=== PATIENT | female | born 2005 | race Caucasian/White ===

== ENCOUNTER 2023-07-20 16:26 | Emergency (ER) | payer BC, SELFPAY ==
--- NOTE | 2023-07-20 16:28 | ED.EAR ---
HPI - Ear Problem General Chief complaint: Ear Stated complaint: Ear Pain (right ear) Time Seen by Provider: 07/20/23 16:28 Source: patient Mode of arrival: ambulatory Limitations: no limitations History of Present Illness HPI Narrative: Patient is a 18-year-old female that presents with right ear pain for 2 days. Reports decreased hearing as well. Denies any congestion, sore throat, cough, fever, chills, nausea, vomiting, diarrhea. Denies history of ear infections. Does wear ear plugs and ear buds frequently. MD Complaint: ear pain Related Data Allergies Allergy/AdvReac Type Severity Reaction Status Date / Time No Known Allergies Allergy Mild Verified 07/20/23 16:30 Review of Systems Review of Systems: All systems reviewed & are unremarkable except as noted in HPI and below Constitutional: Constitutional: Denies body ache(s), Denies chills, Denies fever(s), Denies headache(s) and Denies malaise Eyes: Eyes: Denies blurry vision, Denies eye discharge and Denies irritation ENT: Reports otalgia, Denies headache(s), Denies nasal congestion, Denies nasal discharge and Denies sore throat Cardiovascular: Cardiovascular: Denies chest pain, Denies edema, Denies palpitations and Denies dyspnea on exertion Respiratory: Respiratory: Denies cough and Denies dyspnea on exertion Gastrointestinal: Gastrointestinal: Denies abdominal pain, Denies diarrhea, Denies nausea and Denies vomiting Musculoskeletal: Musculoskeletal: Denies back pain, Denies arthralgias and Denies muscle weakness Integumentary/Breasts: Skin/Breast: Denies pruritus and Denies rash Neurologic: Denies headache(s) Psychiatric: Psychiatric: Reports no additional psychiatric complaints Endocrine: Endocrine: Denies palpitations PMFSH Past Medical History Medical History HIEU (generalized anxiety disorder) Insomnia Migraine Panic attacks Family History Family History Father Diabetes mellitus Hypertension Mother Heart disease Social History Social History Smoking status: Never smoker Second hand tobacco smoke exposure: No Alcohol intake: never Substance use: never Living arrangements: with family Occupation/Education: occupation Gender identity (if verbalized by the patient): Other Spiritual care concerns: No Comments At time of signature, agree with nursing past medical, surgical, social and family history. There is no relevant family history pertinent to the presenting complaint? Exam Const: General: cooperative, healthy appearing, no acute distress and well nourished Nutritional Appearance: well nourished Orientation/consciousness: patient oriented x3 Limitations: no limitations HENMT: Head: normal to inspection, normocephalic and atraumatic Ears: hearing grossly normal bilaterally, EAC's normal, no periauricular adenopathy and TM abnormal obstructed by cerumen bilateral Face/Nose/Sinus: Normal external nose present, Normal nares present, Normal nasal mucous membranes and turbinates present, No nasal discharge present, normal facial exam and sinuses nontender Face and sinus: normal facial exam and sinuses nontender Mouth: Yes Normal oral and palatal mucosa present, Yes lip normal, Yes tongue normal and Yes moist mucous membranes Throat: posterior oropharynx normal, tonsils normal and uvula midline Eyes: General: appearance normal, both eyes and all related structures Alignment and Position: alignment normal and position normal Eyelids: eyelids normal Pupils: Equal, round and reactive pupils present EOM: EOMs intact bilaterally Neck: Neck: normal visual inspection, full ROM, no lymphadenopathy and supple Chest: Chest palpation & inspection: normal inspection of the chest Resp: Effort & Inspection: normal respiratory effort and able to speak in complete sentenc
[2023-07-20 16:41] VITALS: BP 112/73; PULSE 76; RESP 16; TEMP 36.9; O2SAT 100
== END 2023-07-20 16:55 | disposition home or self-care (01) ==
PROVIDERS: Emergency Provider Nurse Practitioner Family; PCP Family Medicine
DX: H61.23 Impacted cerumen, bilateral (principal); H60.501 Unspecified acute noninfective otitis externa, right ear; H66.001 Acute suppurative otitis media without spontaneous rupture of ear drum, right ear
CPT/HCPCS: 69209; 99213; A9270; G0463

== ENCOUNTER 2024-01-04 14:40 | Emergency (ER) | payer BC, SELFPAY ==
--- NOTE | 2024-01-04 14:44 | ED_ITS ---
HPI - URI/Sore Throat General Chief Complaint: Upper Respiratory Infection Stated Complaint: COUGH Time Seen by Provider: 01/04/24 14:44 Source: patient Mode of arrival: ambulatory Limitations: no limitations History of Present Illness HPI Narrative: Cristina is a 18-year-old female patient presenting to the clinic today with complaints of nasal congestion and cough x1 week. She reports cough is productive at times with clear phlegm. She denies any shortness of breath, chest pain, or fever. MD elicited complaint: cough and nasal congestion Related Data Allergies Allergy/AdvReac Type Severity Reaction Status Date / Time No Known Allergies Allergy Mild Verified 12/06/23 10:26 Review of Systems Review of Systems: Pertinent positives per HPI. Patient denies any fever, chills, rash, headache, visual changes, dizziness,shortness of breath, chest pain, palpitations, nausea, vomiting, diarrhea, constipation, abdominal pain, or any urinary issues. PMFSH Past Medical History Medical History HIEU (generalized anxiety disorder) Insomnia Migraine Panic attacks Family History Family History Father Diabetes mellitus Hypertension Mother Heart disease Social History Social History Smoking status: Never smoker Second hand tobacco smoke exposure: No Alcohol intake: never Substance use: never Living arrangements: with family Occupation/Education: occupation Gender identity (if verbalized by the patient): Other Spiritual care concerns: No Comments At the time of my signature, I reviewed and agree with the nursing past medical, surgical, social, and family history. There is no relevant family history pertinent to the patient complaint. Exam Narrative: General: Well-developed, well nourished, in no apparent distress Head: Normocephalic, atraumatic Eyes: Pupils equally round and reactive to light bilaterally, EOM intact, sclera and conjunctive clear, no discharge, lids normal Ears: TMs intact and clear, ear canals clear, no drainage, grossly hearing norm al. Nose: Nares patent, clear nasal discharge, no inflammation, no sinus tenderness. Mouth: Oral pharynx without lesions or masses, good dentition, MMM. Neck: Supple, trachea midline, no enlargement of anterior or posterior cervical nodes, no thyroid masses or goiter palpable. Cardio: Regular rate and rhythm, s1 and s2 normal, no murmur appreciated. Resp: Clear to auscultation bilaterally, no rhonchi, rales, wheezing or rubs Course Course Emergency Course: Portions of this record may have been created with voice recognition software. Level of Care: Express Care Visit Vital Signs Vital signs: Vital signs reviewed MDM - URI/Sore Throat MDM Narrative Medical decision making narrative: At the time of visit patient is resting comfortably on the exam table. Patient appears to be nontoxic. Plan: Lung sounds are clear patient denies any shortness of breath. Cough is productive at times with clear phlegm. Reporting nasal congestion. I suspect patient has URI. Prescription for prednisone was sent to the pharmacy. Supportive measures were discussed with the patient and they voiced understanding discharge instructions and agrees to treatment plan. Return precautions reviewed Differential Diagnosis Differential diagnosis: Likely upper respiratory infection, otitis media, sinusitis, viral infection, bronchitis, influenza, pharyngitis and other (COVID) Discharge Plan Discharge Clinical Impression: Upper respiratory infection Patient Disposition: Home, Self-Care Condition: Stable Instructions: Antibiotic Form, Cold Symptoms (ED) Additional Instructions: Take prescription medications only as prescribed-prednisone Increase fluids and stay well hydrated Tylenol/motrin for pain/fever Flonase and OTC antihistamines as directed Vicks vapor rub to open sinuses Sinus rinses for congestion Cepacol spray, cough drops, throat lozenges, warm tea with honey/lemon, gargle salt water to soothe throat BRAT diet for diarrhea Clear liquids x 24 hours then advance as tolerated for nausea/vomiting Go to the ED if you develop a worsening in your condition- high fever not controlled by Tylenol or Motrin, dehydration, weakness, lethargy, shortness of breath, or chest pain. Follow up with your PCP in 3-5 days if symptoms persist. Prescriptions: New prednisone 20 mg tablet 40 mg PO DAILY 5 Days Qty: 10 0RF No Action duloxetine 60 mg capsule,delayed release(DR/EC) 60 mg PO DAILY Qty: 90 3RF Follow-up/Referrals: Chauncey Dominique MD [Primary Care Provider] - Time of Disposition: 14:55 Quality NIHSS Nursing Documentation ED NIHSS nursing documentation: reviewed/agree
[2024-01-04 14:47] VITALS: BP 115/63; PULSE 68; RESP 16; TEMP 36.6; O2SAT 100
[2024-01-04 14:50] VITALS: BP 115/63; PULSE 68; RESP 16; TEMP 36.6; O2SAT 100
== END 2024-01-04 15:01 | disposition home or self-care (01) ==
PROVIDERS: Emergency Provider Nurse Practitioner Family; PCP Family Medicine
DX: J06.9 Acute upper respiratory infection, unspecified (principal)
CPT/HCPCS: 99213; G0463

== ENCOUNTER 2025-01-11 12:58 | Emergency (ER) | payer BC, SELFPAY ==
--- OUTSIDE RECORDS SUMMARY | 2024-07-22 07:45 | XMS_ITS ---
Author Organization [facility] [employer] [facility] Address [facility] [address] [facility] [address] [place] [address] Care Team Providers Care Signal Tester Name Role Phone Catina CARCAMO, Chauncey Primary Care Provider UnavailTony Case Unavailable [phone] REASON FOR VISIT 1 month f/u Social History Sex Assigned At : Social History Observation Description Sex Assigned At Female Encounters Encounter Location Date Provider Diagnosis [facility] [employer] [address] [address] 07/22/2024 Tony Childress Plan Of Treatment No Information Progress Notes * Cristina ESTEBAN NDOB: [birth year] (19 yo M)Acc No.[id number]:07/22/2024 Patient: Cristina Calzada Provider: JASS CRUZ :2005 A ge:19 Y S ex:Male(T) Date:07/22/2024 Phone: Address:[address] [place], [place] [id number] Pcp:Chauncey Dominique MD Subjective: * Chief Complaints: * 1 month f/u * Electronic signature of JASS Moeller on 01/11/2025 at 01:01 PM RETAIL PLANNER Sign off status: Pending * Provider: JASS CRUZ Date: 0 07/22/2024 Generated for Silvana pierre/Hans/eTransmitting on: 1 03/14/2024 01:01 PM RETAIL PLANNER
--- OUTSIDE RECORDS SUMMARY | 2024-11-13 07:45 | XMS_ITS ---
Author Organization [facility] [employer] [facility] Address [facility] [address] [address] Care Team Providers Care Feed Research Technician Name Role Phone Chauncey Dominique MD Primary Care Provider Tony Chaney Unavailable [phone] REASON FOR VISIT Follow Up Social History Sex Assigned At : Social History Observation Description Sex Assigned At Female Encounters Encounter Location Date Provider Diagnosis [facility] [employer] [facility] [address] [address] 11/13/2024 Tony Childress Plan Of Treatment No Information Progress Notes * Cristina ESTEBAN NDOB: [birth year] (19 yo M)Acc No.[id number]:11/13/2024 Patient: Cristina Calzada Provider: JASS CRUZ :2005 A ge:19 Y S ex:Male(T) Date:11/13/2024 Phone: Address:[address] [place], [place] [id number] Pcp:Chauncey Dominique MD Subjective: * Chief Complaints: * F ollow Up Billing Information: * Procedure Codes: * Electronic signature of JASS Moeller on 01/11/2025 at 01:01 PM BRAKE SPECIALIST Sign off status: Pending * Provider: JASS CRUZ Date: Generated for Silvana pierre/Hans/eTransmitting on: 03/14/2024 01:01 PM BRAKE SPECIALIST
--- OUTSIDE RECORDS SUMMARY | 2025-01-11 13:01 | XMS_ITS | Clinical Summary ---
Author Organization [facility] Address [address] [place] [address] Care Team Providers Care Usability Strategist Name Role Phone Chauncey Dominique MD Primary Care Provider Allergies No known active allergies Medications rizatriptan (MAXALT) 10 mg tabletIndicatio ns:Migraine Take 1 tablet (10 mg total) by mouth once as needed for migraine May repeat in 2 hours if unresolved. Do not exceed 30 mg in 24 hours. 9 tablet 3 05/03/2021 Active hydrOXYzine (ATARAX) 25 mg tabletIndicatio ns:anxiety,Inso mnia Take 1 tablet (25 mg total) by mouth 2 (two) times a day as needed for anxiety 30 tablet 2 02/11/[address] (CYMBALTA) 60 mg capsule TAKE 1 CAPSULE(60 MG) BY MOUTH DAILY 30 capsule 2 02/11/2024 Active Active Problems Problem Noted Date Diagnosed Date Anxiety 04/07/2021 Assessment & Plan (04/07/2021 6:23 PM LOUVER DOOR ASSEMBLER): - Consulted Psychiatry and Psychology - Lexapro 10mg every day per Psych rec; patient and family consented to this plan - Provided outpatient resources for longitudinal care Fever of unknown origin 04/04/2021 Assessment & Plan (04/07/2021 6:20 PM LOUVER DOOR ASSEMBLER): This is a 15yo previously healthy female with no known exposures presenting with 6 weeks of near daily fevers and headache with unremarkable work-up thus far, admitted for further work-up including brain imaging. Fevers have occurred almost every day since 02/22, average 100-101F, a/w frontal BAPTISTE that occurs both when febrile and afebrile. Also endorses nausea, decreased appetite, fatigue, decreased activity tolerance, mental slowing, and unintentional 15lb weight loss since November 2020. She is Covid vaccinated and has had multiple negative Covid tests, labs drawn with negative inflammatory markers, and no positive infectious etiology (negative histo eran, Tspot, HIV, CMV, EBV, Bartonella, Toxo, neg blood cx). Her exam is negative for lymphadenopathy, abdominal pain, abdominal masses, joint erythema/ edema, URI sx. Differential diagnosis for ongoing fever and headache is broad but now less likely due to autoimmune disorders given negative inflammatory markers (ESR, CRP) and ROS is negative for arthritis, arthralgia, bloody stools, vision changes, mucous membrane changes. Workup with normal brain and total spine MRI, CT c/abd/pel, and echo. Also less likely due to an acute infection given the broad infectious workup has been unremarkable. Patient has also been afebrile throughout her hospitalization. Plan: #FUO - tylenol/ ibuprofen prn for fever - f/u blood cx, UA and urine culture, tularemia, qfever titers, copper, zinc - updated the PCP with the extent of workup and transition of care to [facility] and clinical trajectory Assessment & Plan (04/06/2021 4:38 PM LOUVER DOOR ASSEMBLER): This is a 15yo previously healthy female with no known exposures presenting with 6 weeks of near daily fevers and headache with unremarkable work-up thus far, admitted for further work-up including brain imaging. Fevers have occurred almost every day since 02/22, average 100-101F, a/w frontal BAPTISTE that occurs both when febrile and afebrile. Also endorses nausea, decreased appetite, fatigue, decreased activity tolerance, mental slowing, and unintentional 15lb weight loss since November 2020. She is Covid vaccinated and has had multiple negative Covid tests, labs drawn with negative inflammatory markers, and no positive infectious etiology (negative histo eran, Tspot, HIV, CMV, EBV, Bartonella, Toxo, neg blood cx). Her exam is negative for lymphadenopathy, abdominal pain, abdominal masses, joint erythema/ edema, URI sx. Differential diagnosis for ongoing fever and headache is broad and includes autoimmune disorders (including ZOE, familial Mediterranean fever, IBD, lupus), infectious disease (including bartonellosis, toxoplasmosis, histoplasmosis, blastomycosis, brucellosis, HIV, TB), and malignancy. Bartonellosis would be plausible with her home exposure to cats though has previously tested negative - this could be a false negative and we will follow up on repeat antibody testing. Labs for toxo, histo, HIV, TB were negative as well, and were lower on the differential given her lack of exposures or other systemic sx. Autoimmune/ rheumatologic disorders remain on the differential though her inflammatory markers (ESR, CRP) have consistently been negative and ROS is negative for arthritis, arthralgia, bloody stools, vision changes, mucous membrane changes. Workup with normal brain MRI, CT c/abd/pel, and echo. Labs with normal thyroid function and IgA. Plan: #FUO - tylenol/ ibuprofen prn for fever - Melatonin prn qhs for sleep - POAL - f/u blood cx, UA and urine culture, bartonella, brucella, tularemia, qfever, chlamydia titers - MRI total spine per Neuro recommendation - Labs with VITOR, MYRTLE, dsDNA, C3, C4, vit B12, copper, zinc Assessment & Plan (04/06/2021 4:12 PM LOUVER DOOR ASSEMBLER): This is a 15yo previously healthy female with no known exposures presenting with 6 weeks of near daily fevers and headache with unremarkable work-up thus far, admitted for further work-up including brain imaging. Fevers have occurred almost every day since 02/22, average 100-101F, a/w frontal BAPTISTE that occurs both when febrile and afebrile. Also endorses nausea, decreased appetite, fatigue, decreased activity tolerance, mental slowing, and unintentional 15lb weight loss since November 2020. She is Covid vaccinated and has had multiple negative Covid tests, labs drawn with negative inflammatory markers, and no positive infectious etiology (negative histo eran, Tspot, HIV, CMV, EBV, Bartonella, Toxo, neg blood cx). On exam she is thin but well-appearing and alert, with findings significant for anisocoria (L pupil >R pupil), two papules on distal knuckle of 2nd and 3rd fingers of R hand, otherwise negative for lymphadenopathy, abdominal pain, abdominal masses, joint erythema/ edema, URI sx. Differential diagnosis for ongoing fever and headache is broad and includes autoimmune disorders (including ZOE, familial Mediterranean fever, IBD, lupus), infectious disease (including bartonellosis, toxoplasmosis, histoplasmosis, blastomycosis, brucellosis, HIV, TB), and malignancy. Bartonellosis would be plausible with her home exposure to cats though has previously tested negative - this could be a false negative and we will repeat antibody testing. Labs for toxo, histo, HIV, TB were negative as well, and were lower on the differential given her lack of exposures or other systemic sx. Autoimmune/ rheumatologic disorders remain on the differential though her inflammatory markers (ESR, CRP) have consistently been negative and ROS is negative for arthritis, arthralgia, bloody stools, vision changes, mucous membrane changes. Given ongoing headache and nausea and unremarkable work-up thus far, we will obtain brain imaging in the AM to rule out intracranial process in addition to repeating prior labs: CBC, CMP, ESR, CRP, UA, blood culture, bartonella antibodies. Plan: #FUO - tylenol/ ibuprofen prn for fever - Melatonin prn qhs for sleep - POAL - f/u blood cx, UA, hcG, Bartonella titers - MRI brain w wo contrast in AM Assessment & Plan (04/05/2021 3:00 AM LOUVER DOOR ASSEMBLER): This is a 15yo previously healthy female with no known exposures presenting with 6 weeks of near daily fevers and headache with unremarkable work-up thus far, admitted for further work-up including brain imaging. Fevers have occurred almost every day since 02/22, average 100-101F, a/w frontal BAPTISTE that occurs both when febrile and afebrile. Also endorses nausea, decreased appetite, fatigue, decreased activity tolerance, mental slowing, and unintentional 15lb weight loss since November 2020. She is Covid vaccinated and has had multiple negative Covid tests, labs drawn with negative inflammatory markers, and no positive infectious etiology (negative histo eran, Tspot, HIV, CMV, EBV, Bartonella, Toxo, neg blood cx). On exam she is thin but well-appearing and alert, with findings significant for anisocoria (L pupil >R pupil), two papules on distal knuckle of 2nd and 3rd fingers of R hand, otherwise negative for lymphadenopathy, abdominal pain, abdominal masses, joint erythema/ edema, URI sx. Differential diagnosis for ongoing fever and headache is broad and includes autoimmune disorders (including ZOE, familial Mediterranean fever, IBD, lupus), infectious disease (including bartonellosis, toxoplasmosis, histoplasmosis, blastomycosis, brucellosis, HIV, TB), and malignancy. Bartonellosis would be plausible with her home exposure to cats though has previously tested negative - this could be a false negative and we will repeat antibody testing. Labs for toxo, histo, HIV, TB were negative as well, and were lower on the differential given her lack of exposures or other systemic sx. Autoimmune/ rheumatologic disorders remain on the differential though her inflammatory markers (ESR, CRP) have consistently been negative and ROS is negative for arthritis, arthralgia, bloody stools, vision changes, mucous membrane changes. Given ongoing headache and nausea and unremarkable work-up thus far, we will obtain brain imaging in the AM to rule out intracranial process in addition to repeating prior labs: CBC, CMP, ESR, CRP, UA, blood culture, bartonella antibodies. Plan: #FUO - tylenol/ ibuprofen prn for fever - Melatonin prn qhs for sleep - POAL - f/u blood cx, UA, hcG, Bartonella titers - MRI brain w wo contrast in AM Intermittent exotropia 10/04/2017 Assessment & Plan (10/04/2017 2:52 PM CDT): Fairly well controlled at present Recheck 3 months Consider surgery if worsens Migraine 10/04/2017 Assessment & Plan (04/07/2021 6:21 PM LOUVER DOOR ASSEMBLER): - tylenol PRN, if headache persists, trial Migraines cocktail Assessment & Plan (10/04/2017 2:53 PM CDT): Frequent headaches, likely migraine No ocular problems contributing to these Recommend neurology evaluation 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 018 Assessment & Plan (10/04/2017 2:55 PM CDT): Borderline intraocular pressure (IOP) Tilted discs both eyes (OU) Monitor Myopia of both eyes 10/04/2017 Assessment & Plan (10/04/2017 2:56 PM CDT): No change Rx Surgical History Surgery Date Site/Laterality Comments LYMPH NODE BIOPSY Medical History Medical History Date Comments Patent foramen ovale Family History Medical History Relation Name Comments Diabetes type II Father Migraines Mother Relation Name Status Comments Father Mother Social History Tobacco Use Types Packs/Day Years Used Date Smoking Tobacco: Never Assessed Comments Unknown Sex and Gender Information Value Date Recorded Sex Assigned at Not on file Legal Sex Female 5:11 AM LOUVER DOOR ASSEMBLER Gender Identity Not on file Sexual Orientation Not on file Last Filed Vital Signs Vital Sign Reading Time Taken Comments Blood Pressure 126/83 06/19/2023 10:36 AM CDT Pulse 82 06/19/2023 10:36 AM CDT Temperature 36.2 C (97.1 F) 06/19/2023 10:36 AM CDT Respiratory Rate 15 11/22/2021 9:31 AM CDT Oxygen Saturation 99% 10/24/2022 10:08 AM CDT Inhaled Oxygen Concentration - - Weight 41.7 kg (92 lb) 06/19/2023 10:36 AM CDT Height 157 cm (5' 1.81) 06/19/2023 10:36 AM CDT Body Mass Index 16.93 06/19/2023 10:36 AM CDT Plan of Treatment Health Maintenance Due Date Last Done Comments Cervical Cancer Screening 2003 Depression Screening 2003 Hepatitis C Screening 2003 HPV Vaccines (3 - 3-dose series) 03/31/2021 12/01/19 21, 09/28/2020 Regular Well Visit/Exam 18-64 05/19/2021 Covid-19 Vaccine (2024-2 6 season) 2024 01/26/2021, 05/27/2020, 05/04/2020 Influenza Vaccine (#1) 2024 01/26/2021, 2019 DTaP/Tdap/Td Vaccine (6 - Td or Tdap) 11/24/2024 11/24/2014, 09/23/2006, 11/21/2004, Additional history exists Hepatitis B Screening Completed 08/15/2004 , 2003, 2003 Pneumococcal vaccine <65 Completed 005, 2003, 2003 Varicella Vaccines Completed 09/24/2007, 08/15/2004 Meningococcal Vaccine Completed 09/28/2020, 015 Meningococcal B Vaccine Completed 11/30/2020, 09/28 Insurance [email or web address] ACCESS CHOICE [email or web address] ACCESS CHO[employer] Advance Directives For more information, please contact: [phone] * Full Code (Latest Code Status on File) Date Activated Date Inactivated Comments 04/04/2021 11:21 PM 04/08/2021 6:16 PM Care Teams Usability Strategist Relationship Specialty Start Date End Date Chauncey Dominique MD [address] [facility] [address] [place] [address] PCP - General Family Medicine 11/22/21
--- OUTSIDE RECORDS SUMMARY | 2025-01-11 13:02 | XMS_ITS | Patient Health Record ---
Author Organization [facility] [employer] Address [address] [facility] [address] [place] [address] Care Team Providers Care Mexican Food Machine Tender Name Role Phone Chauncey Dominique MD Primary Care Provider UnavailTony Case Unavailable [phone] Allergies No Known Allergies Reason For Referral No Information Medications Medication SIG (Take, Route, Frequency, Duration) Notes Start Date End Date Status traZODone HCl 50 MG Tablet 0.5 to 1 tablet at bedtime Orally Once a day; Duration: 30 days As needed 08/20/2024 Active Sertraline HCl 100 MG Tablet 1.5 tablet Orally Once a day; Duration: 30 days Active hydrOXYzine HCl 25 MG Tablet 1 tablet as needed Oral; Duration: 15 days As needed PRN Active Sertraline HCl 100 MG Tablet TAKE 1 AND 1/2 TABLETS BY MOUTH DAILY; Duration: 30 Active QUEtiapine Fumarate ER 50 MG Tablet Extended Release 24 Hour 1 tablet in the evening Orally once a day; Duration: 30 days Active Sertraline HCl 25 MG Tablet TAKE 1 TABLET BY MOUTH DAILY FOR 7 DAYS THEN 2 TABLETS BY MOUTH DAILY FOR 7 DAYS Oral; Duration: 14 Days Not-Taking Sertraline HCl 25 MG Tablet Oral; Duration: 14 Days Not- Taking DULoxetine HCl 30 MG Capsule Delayed Release Particles Oral; Duration: 14 Days Not- Taking DULoxetine HCl 30 MG Capsule Delayed Release Particles TAKE 1 CAPSULE BY MOUTH DAILY FOR 14 DAYS Oral; Duration: 14 Days Not-Taking Social History Tobacco Use: Social History Observation Description Date Details (start date - stop date) Never Smoker NA - NA Sex Assigned At : Social History Observation Description Sex Assigned At Female Social History Miscellaneous: Social Info Question Answer Notes Safety issues: Are there any firearms in the house? No Social History Social Info Question Answer Notes Household: Marital Status: Single Number of Adults in household: 4 Number of Children in Household: 0 Level of Education: Not Finished College Drug/Alcohol: Social Info Question Answer Notes Drugs Have you used drugs other than those for medical reasons in the past 12 months? No AUDIT-C (Standard) Did you have a drink containing alcohol in the past year? 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 Adm its Do you drink alcohol? No Problems Problem Type SNOMED Code ICD Code Onset Dates Problem Status W/U Status Risk Notes Problem Generalized anxiety disorder (78971595) Anxiety, generalized (F41.1) Active confirmed Problem Bipolar disorder (01299877) Bipolar disorder with depression (F31.9) Active confirmed Problem Insomnia (939052206) Insomnia (G47.00) Active confirmed Vital Signs Heart Rate 80 /min 08/20/2024 Height-cm 154.94 cm 08/20/2024 Blood pressure diastolic 72 mm Hg 08/20/2024 Weight-kg 43.09 kg 08/20/2024 Height 61 in 08/20/2024 Blood pressure systolic 108 mm Hg 08/20/2024 Weight 95.0 lbs 08/20/2024 BMI 17.95 kg/m2 08/20/2024 Encounters Encounter Location Date Provider Diagnosis [facility] [address] [place] [address] [address] 04/16/2024 Tony Childress Bipolar disorder wit h depression F31.9 ; Encounter for screening for depression Z13.31 ; Anxiety, generalized F41.1 and Insomnia G47.[address] [facility] [address] [place] [address] [address] 05/14/2024 Tony Childress Encounter for screen ing for cardiovascular disorders Z13.6 ; Bipolar disorder with depression F31.9 ; Encounter for screening for depression Z13.31 ; Anxiety, generalized F41.1 and Insomnia G47.[address] [facility] [address] [place] [address] [address] 06/10/2024 Tony Childress Negative depression screening Z13.31 ; Encounter for screening for cardiovascular disorders Z13.6 ; Bipolar disorder with depression F31.9 ; Encounter for screening for depression Z13.31 ; Anxiety, generalized F41.1 and Insomnia G47.00 [facility] [address] [place] [address] [place] [address] 08/20/2024 Tony Childress Bipolar disorder wit h depression F31.9 ; Anxiety, generalized F41.1 and Insomnia G47.00 [facility] [address] [place] [address] [place] [address] 05/14/2024 Tony Childress [facility] [address] [place] [address] [place] [address] 06/04/2024 Tony Childress Anxiety, generalized F41.1 [facility] [address] [place] [address] [place] [address] 06/04/2024 Tony Childress Anxiety, generalized F41.1 [facility] [address] [facility] [address] [place] [address] 06/12/2024 Tony Childress [facility] [address] [facility] [address] [place] [address] 08/25/2024 Tony Childress [place] [address] [facility] [address] [place] [address] 11/17/2024 Tony Childress Assessments Encounter Date Diagnosis (ICD Code) Assessment Notes Treatment Notes Treatment Clinical Notes Section Notes 08/20/2024 Anxiety, generalized (ICD-10 - F41.1) 08/20/2024 Bipolar disorder with depression (ICD-10 - F31.9) 06/10/2024 Negative depression screening (ICD-10 - Z13.31) 06/04/2024 Anxiety, generalized (ICD-10 - F41.1) 06/04/2024 Anxiety, generalized (ICD-10 - F41.1) 05/14/2024 Encounter for screening for cardiovascular disorders (ICD-10 - Z13.6) 04/16/2024 Bipolar disorder with depression (ICD-10 - F31.9) 04/16/2024 Encounter for screening for depression (ICD-10 - Z13.31) 05/14/2024 Bipolar disorder with depression (ICD-10 - F31.9) 08/20/2024 Insomnia (ICD-10 - G47.00) 06/10/2024 Encounter for screening for cardiovascular disorders (ICD-10 - Z13.6) 05/14/2024 Encounter for screening for depression (ICD-10 - Z13.31) 06/10/2024 Bipolar disorder with depression (ICD-10 - F31.9) 04/16/2024 Anxiety, generalized (ICD-10 - F41.1) 04/16/2024 Insomnia (ICD-10 - G47.00) 05/14/2024 Anxiety, generalized (ICD-10 - F41.1) 06/10/2024 Encounter for screening for depression (ICD-10 - Z13.31) 06/10/2024 Anxiety, generalized (ICD-10 - F41.1) 05/14/2024 Insomnia (ICD-10 - G47.00) 06/10/2024 Insomnia (ICD-10 - G47.00) 04/16/2024 Other Learning About Depression Screening material was printed 1. Bipolar Disorder - Suspected Assessment: Symptoms indicative of bipolar disorder observed, including periods of elevated mood with increased energy, decreased need for sleep, racing thoughts, and impulsivity, contrasted by depressive episodes characterized by crying spells, social withdrawal, and academic difficulties. History of anxiety and depression noted, with symptoms worsening in winter. Previous treatments with Lexapro and duloxetine were ineffective or lost efficacy. Family history of bipolar disorder is unknown. Recent discontinuation of duloxetine may have exacerbated mood symptoms. Plan: Initiate quetiapine XR 50 mg PO qhs for mood stabilization. Taper duloxetine: Decrease to 30 mg daily for 2 weeks, then discontinue. Monitor for side effects of quetiapine, including weight gain, metabolic changes, and movement disorders. Educate the patient on medication timing to manage sedation. Schedule follow-up in 1 month to assess medication efficacy and tolerability. 2. Generalized Anxiety Disorder Assessment: The patient experiences longstanding anxiety symptoms such as restlessness, racing heart, shortness of breath, excessive worry, and indecisiveness, affecting daily functioning and social interactions. Previous treatment with duloxetine 60 mg daily and as-needed hydroxyzine was partially effective. Plan: Prescribe clonidine 0.1 mg PO daily PRN for anxiety. Continue hydroxyzine PRN for anxiety (dose not specified). Encourage ongoing use of coping strategies for anxiety management. 3. Insomnia Assessment: Challenges with falling and staying asleep reported. Previous treatment included clonidine 0.1 mg. Current sleep patterns involve late bedtime and early waking, resulting in unfulfilling sleep. Plan: Anticipate improvement in sleep with the initiation of quetiapine XR. Educate on sleep hygiene techniques. Monitor sleep patterns at the next follow-up appointment. 4. Cannabis Use Assessment: Weekly cannabis use reported by the patient. Plan: Educate on potential interactions between cannabis and prescribed medications. Discuss the impact of cannabis use on mood and anxiety symptoms. 05/14/2024 Other Based upon results from multiple studies, the most common discontinuation symptoms appear to be Dizziness Fatigue Headache Nausea Other common discontinuation symptoms include Agitation Anxiety Chills without fever Diaphoresis Dysphoria Electric shock-like sensations (brain zaps) Insomnia Irritability Myalgias Paresthesias Rhinorrhea Tremor Vivid dreams Cristina Esteban presents with worsening depression, anxiety, and panic attacks following discontinuation of duloxetine and initiation of quetiapine. Major Depressive Disorder with Anxiety Assessment: Patient reports significant emotional distress, daily crying, and increased frequency of panic attacks since discontinuing duloxetine and starting quetiapine. Despite subjective worsening, HIEU-7 score improved from 20 to 15, and PHQ-9 score improved from 15 to 9. This discrepancy may indicate some unrecognized improvement or potential duloxetine discontinuation syndrome. Previous history includes mood fluctuations with elevated moods lasting a couple of days, increased energy, goal-directed behavior, and impulsiveness, alternating with depressive episodes. However, patient denies any recent elevated moods, reporting persistent depression. Sleep is reportedly good with current medication regimen. No hallucinations or aggression noted. Differential diagnosis includes Major Depressive Disorder and Bipolar Disorder, with the current presentation more consistent with unipolar depression. Plan: - Initiate sertraline (Zoloft): - 25 mg PO daily for 1 week - Increase to 50 mg PO daily for 1 week (2 x 25 mg tablets) - Then increase to 100 mg PO daily (100 mg tablet) - Continue quetiapine ER 15 mg PO in the evenings - Continue clonidine PRN for anxiety - Follow-up appointment in 1 month the note is transcribed using speech recognition software. It is a reflection of a visit with the patient. It might have some inaccuracy, including medication names and transcribing errors, though efforts have been made to correct them. 06/10/2024 Mumtaz Esteban presents with ongoing anxiety and occasional panic attacks following discontinuation of duloxetine, currently managed with sertraline and quetiapine ER. 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 Despite this, the patient states overall improvement in mood and anxiety. No current depressive symptoms, suicidal ideation, or manic symptoms reported. Sleep appears to be adequate. The recent anxiety exacerbation may be related to sertraline dose adjustment, as patient was titrated from 25 mg to 50 mg to 100 mg over the past month. Plan: - Increase sertraline to 150 mg PO daily (1.5 tablets of 100 mg) - Continue quetiapine ER 50 mg PO qhs - Continue clonidine PRN for anxiety - Follow-up appointment in 1 month - Informed patient that sertraline can be increased to 200 mg if needed in the future the note is transcribed using speech recognition software. It is a reflection of a visit with the patient. It might have some inaccuracy, including medication names and transcribing errors, though efforts have been made to correct them. 08/20/2024 Mumtaz Esteban, a patient with a history of anxiety and depression, presents for follow-up reporting improved anxiety symptoms but ongoing sleep difficulties. Anxiety Assessment: Patient reports significant improvement in anxiety symptoms since the last visit on June 10 when sertraline was increased to 150 mg. Currently, the patient states, I don't have a lot of anxiety really, indicating good response to the current medication regimen. Plan: - Continue sertraline 150 mg daily - Continue quetiapine ER 50 mg daily Insomnia Assessment: Patient reports persistent sleep difficulties despite current use of clonidine. He states, I've been taking 2 quantadien to go to sleep and then I still wake up at like 5 every day. Patient reports going to bed around midnight and getting not that much sleep. The current sleep medication is ineffective, necessitating a change in treatment approach. Plan: - Discontinue clonidine - Start trazodone 50 mg PO at bedtime - Advised to start with 25 mg (half tablet) and increase to full dose if tolerated - Informed of potential side effect of morning grogginess - Follow up in 3 months - Contact clinic if issues arise with trazodone Depression Assessment: Patient denies current depressive symptoms. He reports increased social activity, including recent trips to [place] and [place]. Patient also mentions plans to return to school in the fall, suggesting improved mood and functioning. Plan: - Continue current medication regimen - Monitor mood at follow-up appointment the note is transcribed using speech recognition software. It is a reflection of a visit with the patient. It might have some inaccuracy, including medication names and transcribing errors, though efforts have been made to correct them. Plan Of Treatment Pending Test Test Name Order Date UDT 04/16/2024 Insurance Providers Payer Name Payer Address Payer Phone Subscriber Number Group Number Insured Name Patient Relationship to Insured Coverage Start Date Coverage End Date [facility] [address] [place] [address] [id number] Cristina Esteban Self - patient is the insured Medical (General) History Medical History History ICD Code Past Psychiatric History: Anxiety Disord er abdominal aortic aneurysm: No atrial fibrillation: No chronic fatigue syndrome: No essential tremor: No hyperlipidemia: No hypertension: No Parkinson's disease: No restless leg syndrome: No stroke: No subdural hematoma: No type 1 diabetes mellitus: No type 2 diabetes mellitus: No vitamin B12 deficiency: No vitamin D deficiency: No Imported from Highlights: Th e patient had an office visit on June 19, 2023, with Dr. Adriano Yang MD, PhD, at [facility]. During this visit, the patient was diagnosed with Generalized Anxiety Disorder and Migraine without aura and with status migrainosus, not intractable. Subsequently, the patient self-triaged on February 09, 2024, through [facility] at [facility]. No new conditions or significant events were reported during the self-triage.
[2025-01-11 13:12] VITALS: BP 121/74; PULSE 68; RESP 20; TEMP 36.5; O2SAT 100
--- NOTE | 2025-01-11 13:18 | ED_ITS ---
HPI - URI/Sore Throat General Chief Complaint: Upper Respiratory Infection Stated Complaint: cold/fever Time Seen by Provider: 01/11/25 13:18 Source: patient and RN notes reviewed Mode of arrival: ambulatory Limitations: no limitations History of Present Illness HPI Narrative: 19-year-old female presents with concern of for cough, general malaise, fever for 4 days. Reports she has been alternating DayQuil and NyQuil. She denies known sick contacts MD elicited complaint: fever and cough Related Data Home Medications ?Medication ?Instructions ?Recorded ?Confirmed ?Last Taken ?Type quetiapine 50 mg tablet,extended mg PO 01/11/25 Unkno wn History release 24 hr sertraline 100 mg tablet mg 01/11/25 Unknown History trazodone 50 mg tablet mg 01/11/25 Unknown History Allergies Allergy/AdvReac Type Severity Reaction Status Date / Time No Known Allergies Allergy Mild Verified 01/11/25 13:10 Review of Systems Review of Systems: CONSTITUTIONAL: Reports malaise, fever. EYES: Denies visual changes, redness, or discharge. ENT: Reports rhinorrhea, congestion, and sore throat. CARDIOVASCULAR: Denies chest pain, palpitations, or edema. RESPIRATORY: Reports cough. Denies dyspnea. GASTROINTESTINAL: Denies abdominal pain, nausea, vomiting, diarrhea SKIN: Denies rash or itching. MUSCULOSKELETAL: Reports myalgia. NEUROLOGIC: Reports headache. All systems reviewed & are unremarkable except as noted in HPI and below PMFSH Past Medical History Medical History HIEU (generalized anxiety disorder) Insomnia Migraine Panic attacks Family History Family History Father Diabetes mellitus Hypertension Mother Heart disease Social History Social History Smoking status: Never smoker Second hand tobacco smoke exposure: No Alcohol intake: never Substance use: never Living arrangements: with family Occupation/Education: occupation Gender identity (if verbalized by the patient): Other Spiritual care concerns: No Comments At time of signature, agree with nursing past medical, surgical, social and family history. There is no relevant family history pertinent to the presenting complaint Exam Narrative: GENERAL: Well-appearing, well-nourished, and in no acute distress. HEAD: Normocephalic EYES: PERRLA, conjunctivae clear ENT: Nares clear. Mucous membranes moist. TM pearly ramírez with dull light reflex bilaterally; no tragal tenderness. Oropharynx not erythematous without lesions. Tonsils not enlarged and without exudate, no drooling, no hoarseness, no trismus, uvula midline. NECK: Supple. No lymphadenopathy CHEST: Clear to auscultation, breath sounds equal. No wheezing, rhonchi, rales, or stridor. No respiratory distress, speaks in full sentences. HEART: Regular rate and rhythm. No murmur heard. SKIN: Warm, dry, no rash. NEURO: Alert and oriented x3. PSYCH: Normal mood and affect Course Course Emergency Course: Patient is aware of diagnosis, understands and agrees to treatment plan. Anticipatory guidance given. Patient agrees to follow-up as directed and is aware of reasons to seek care at the emergency department. Portions of this record may have been created with voice recognition software Level of Care: [facility] Visit Vital Signs Vital signs: Vital Signs Temperature 97.7 F 01/11/25 13:12 Pulse Rate 68 01/11/25 13:12 Respiratory Rate 20 01/11/25 13:12 Blood Pressure 121/74 01/11/25 13:12 Pulse Oximetry 100 01/11/25 13:12 Oxygen Delivery Room Air 01/11/25 13:12 Temperature 97.7 F 01/11/25 13:12 Pulse Rate 68 01/11/25 13:12 Respiratory Rate 20 01/11/25 13:12 Blood Pressure 121/74 01/11/25 13:12 Pulse Oximetry 100 01/11/25 13:12 Oxygen Delivery Room Air 01/11/25 13:12 MDM Differential Diagnosis Differential Diagnosis: I evaluated this patient in the [facility]. History is obtained from patient who is an independent historian and physical exam was performed.? Available medical records were reviewed. ? Exam findings and relevant testing show no acute concerns or changes; patient is non-toxic appearing and is in no distress. ? Differential diagnosis considered: Franco virus, strep pharyngitis, allergic rhinitis, upper respiratory tract infection, sinusitis, rhinosinusitis, nasopharyngitis. viral pharyngitis, otitis media, otitis externa, pneumonia, bronchitis, viral cough syndrome, viral syndrome, and influenza. Differential diagnosis and treatment plan were discussed with the patient. Patient agrees with discussion and after shared medical decision making agrees with plan of care. All questions were answered to the patient's satisfaction. Patient is appropriate for outpatient treatment and follow-up. Discharge Plan Discharge Clinical Impression: Influenza A Patient Disposition: Home Condition: Stable Instructions: Influenza (ED) Additional Instructions: -Take strict precautions to prevent the spread of your virus. Be diligent about covering your cough (even when you are alone) and washing your hands frequently. -You may contagious until you have been symptom and/or fever free for 24 hours without fever reducing medicine -Alternate Ibuprofen and Tylenol for pain and fever relief (per package directions) -Some Cough medicines may make you drowsy, do not take it if you have to make important decisions, drive, or work. -Drink plenty of fluid - drink fluid with electrolytes such as Gatorade or other oral re-hydration solution. Avoid caffeine, which can make dehydration worse. -Get plenty of rest to help your body heal. -Use a cool mist humidifier for chest and nasal congestion. -Eat RAW honey or use cough drops to ease throat discomfort -Do not smoke or expose children to secondhand smoke -Wash your hands frequently. -Please follow-up with your primary care doctor in the next 1-2 days if your symptoms do not improve. -If you have any worsening of symptoms or any other concerns please go to the ED immediately. -Please take medications as prescribed and continue taking your home medications as usual. Patient Language: Yakut Prescriptions: New promethazine-DM 6.25-15 mg/5 mL syrup 5 ml PO Q4-6H PRN (Reason: cough) Qty: 120 0RF pseudoephedrine HCl [12 Hour Decongestant] 120 mg tablet extended release 120 mg PO Q12H PRN (Reason: nasal congestion) Qty: 12 0RF No Action trazodone 50 mg tablet sertraline 100 mg tablet quetiapine 50 mg tablet extended release 24 hr PO Follow-up/Referrals: Chauncey Dominique MD [Primary Care Provider, Family Practice] Stand Alone Forms: Work/School Release IP Time of Disposition: 13:25
[2025-01-11 13:27] LABS: EDINFLUASCREEN Positive (Negative); EDINFLUBSCREEN Negative (Negative)
[2025-01-11 13:29] LABS: EDCOVIDSCREEN Negative (Negative)
== END 2025-01-11 13:30 | disposition home or self-care (01) ==
PROVIDERS: Emergency Provider Nurse Practitioner; PCP Family Medicine
DX: J10.1 Influenza due to other identified influenza virus with other respiratory manifestations (principal); F41.1 Generalized anxiety disorder; Z20.822 Contact with and (suspected) exposure to COVID-19
CPT/HCPCS: 87426; 87804; 99213; G0463